=== PATIENT | female | born 1995 | race Caucasian/White ===

== ENCOUNTER 2016-07-09 15:08 | Emergency (ER) | payer OTHER ==
[~2016-07-09] VITALS: Ht 160 cm; Wt 59.6 kg
[2016-07-09] MEDS ORDERED: NORE1TAB62 PO (15:30)
[2016-07-09] MEDS ORDERED: ACYC400T PO (15:30)
[2016-07-09] MEDS ORDERED: GLUCAGON EMERGENCY 1 MG/KIT IV ONE (15:40)
--- NOTE | 2016-07-09 15:55 | NUR ---
pt passes out after iv site placed, cold rag placed to head, pt talking after 10-15 seconds
[2016-07-09 16:02] LABS: BASOPHILS % (AUTO) 1 % (0-2); EOSINOPHILS # (AUTO) 0.3 10^3uL; EOSINOPHILS % (AUTO) 3 % (0-4); MEAN CORPUSCULAR HEMOGLOBIN 30.3 PG (26.0-34.0); MEAN CORPUSCULAR HGB CONC 34.7 g/dL (31.0-37.0); MEAN CORPUSCULAR VOLUME 87 FL (80-100); MEAN PLATELET VOLUME 10.5 FL (6.0-9.5); MONOCYTES # (AUTO) 0.9 X10^3; MONOCYTES % (AUTO) 9 % (3-11); NEUTROPHILS # (AUTO) 6.5 X10^3; NEUTROPHILS % (AUTO) 60 % (51-67); PLATELET COUNT 307 10^3uL (150-450); WHITE BLOOD COUNT 10.86 10^3uL (4.0-11.0)
[2016-07-09 16:09] LABS: ANION GAP 19.4 MEQ/L (3-15); CALCULATED IONIZED CALCIUM 4.1 mg/dL (3.8-4.6); TOTAL PROTEIN 8.4 g/dL (6.4-8.5)
--- NOTE | 2016-07-09 16:45 | NUR ---
pt given water to drink to see if it stays down
[2016-07-09 17:11] VITALS: BP 139/89
--- NOTE | 2016-07-09 17:11 | NUR ---
pt states feels better, able to keep fluids down, will follow up with pcp
== END 2016-07-09 17:34 | disposition home or self-care (01) ==
LOC: ED 15:10
DX: R09.89 Other specified symptoms and signs involving the circulatory and respiratory systems (principal)
CPT/HCPCS: 36415; 80053; 84703; 85025; 96361; 96374; 99283; J1610; J7030